=== PATIENT | male | born 1960 | race Caucasian/White ===

== ENCOUNTER 2021-04-02 10:22 | Emergency (ER) | payer OTHER ==
[~2021-04-02] VITALS: Ht 198.1 cm; Wt 100.0 kg
[2021-04-02] MEDS ORDERED: PROVENTIL0.083 % IN (11:13)
[2021-04-02] MEDS ORDERED: ELAVIL25 M1 PO (11:32)
[2021-04-02] MEDS ORDERED: PROSCAR5 MG PO (11:32)
[2021-04-02 12:15] VITALS: BP 127/84
== END 2021-04-02 12:15 | disposition home or self-care (01) | DRG 179 ==
LOC: ED 10:22
DX: U07.1 COVID-19 (principal); N40.0 Benign prostatic hyperplasia without lower urinary tract symptoms